=== PATIENT | male | born 1980 | race Caucasian/White ===

== ENCOUNTER 2018-04-29 05:19 | Inpatient (IN) ==
--- NOTE | 2018-04-29 05:43 | ED ---
HPI General Chief Complaint: Psychiatric Symptoms Stated Complaint: Vol Psy Time Seen by Provider: 04/29/18 05:33 Source: patient and family Mode of arrival: ambulatory Limitations: no limitations History of Present Illness HPI Narrative: 38 yo M arrives with father. pt called father this am at about 3 or 4 with a concern that "people were going to kill" his father. there is a hx of paranoid schizophrenia. noncompliance with antipsychotics is reported. location neuropsych. severity moderate. Pt denies HI/SI. Pt reports "people" can control his voice such that he says things that he does not mean to say. Related Data Home Medications Medication Instructions Recorded Confirmed No Known Home Medications 04/29/18 04/29/18 Allergies Allergy/AdvReac Type Severity Reaction Status Date / Time No Known Allergies Allergy Uncoded 12/04/11 02:12 Review of Systems ROS: all other systems reviewed are negative [facility] Medical History Medical History Schizophrenia (Acute) Surgical History Surgical History History of knee surgery (Acute) Social History Social History Substance History: No History of Abuse Second Hand Smoke Exposure: No Smoking Status: Current some day smoker Tobacco Type: Cigarettes How Often Do You Have a Drink Containing Alcohol: 2 to 3 times a week Recent Travel in [facility] within the Last 8 Weeks: No Recent Out of Country Travel within the Last 8 Weeks: No Exam Narrative Exam Narrative: GENERAL: 38 yo M, WNWD, NAD SKIN: Focused skin assessment warm/dry. HEAD: Atraumatic. Normocephalic. EYES: Pupils equal and round. No scleral icterus. No injection or drainage. ENT: No nasal bleeding or discharge. Mucous membranes pink and moist. NECK: Trachea midline. No JVD. CARDIOVASCULAR: Regular rate and rhythm. No murmur appreciated. RESPIRATORY: No accessory muscle use. Clear to auscultation. Breath sounds equal bilaterally. GASTROINTESTINAL: Abdomen soft, non-tender, nondistended. Hepatic and splenic margins not palpable. MUSCULOSKELETAL: No obvious deformities. No clubbing. No cyanosis. No edema. NEUROLOGICAL: Awake and alert. No obvious cranial nerve deficits. Motor grossly within normal limits. Normal speech. PSYCHIATRIC: Pt is afraid "people" will "kill" his parents. Course Initial Documented Vital Signs Temperature 98.4 F 04/29/18 05:21 Pulse Rate 74 04/29/18 05:21 Respiratory Rate 16 04/29/18 05:21 Blood Pressure 181/82 H 04/29/18 05:21 Pulse Oximetry 98 04/29/18 05:21 Last Documented Vital Signs Temperature 98.6 F 05/01/18 15:28 Pulse Rate 123 H 05/01/18 15:28 Respiratory Rate 18 05/01/18 15:28 Blood Pressure 119/93 H 05/01/18 15:28 Pulse Oximetry 99 05/01/18 15:28 Sign Out Sign Out Data: Patient Sign Out occurred on 04/29/18 at 07:10. Patient's care was discussed, and care was transferred from Tye Alva MD to Joshua Deras MD. Sign Out Comment: paranoid schizophrenia, not compliant with psychiatric medications, pt here voluntarily, psych medical clearance pending Last updated by Tye Alva MD at 04/29/18 07:02 Post-Handoff Eval: The patient was signed out by Dr. Alva at 7:10 AM. Laboratory evaluation was pending, unremarkable, drug screen is still pending. The patient is medically cleared to be evaluated by psychiatry. Medical Decision Making MDM Narrative Medical decision making narrative: Case d/w oncoming EP at 7:00AM. Medical Screen Exam Complete: Yes Emergency Medical Condition: Yes Lab Data Result diagrams: 04/29/18 06:45 05/01/18 08:58 Lab Results 04/29/18 04/29/18 04/29/18 Range/Units 06:45 06:45 11:30 WBC 9.9 (4.0-11.0) th/mm3 RBC 5.20 (4.50-5.90) mil/mm3 Hgb 16.1 (13.0-17.0) gm/dL Hct 47.7 (39.0-51.0) % MCV 91.7 (80.0-100.0) fL MCH 31.0 (27.0-34.0) pg MCHC 33.8 (32.0-36.0) % RDW 13.0 (11.6-17.2) % Plt Count 481 H (150-450) th/mm3 MPV 6.9 L (7.0-11.0) fL Neut % (Auto) 63.5 (16.0-70.0) % Lymph % (Auto) 26.4 (9.0-44.0) % Putnam % (Auto) 8.6 H (0.0-8.0) % Eos % (Auto) 1.1 (0.0-4.0) % Baso % (Auto) 0.4 (0.0-2.0) % Neut # (Auto) 6.3 (1.8-7.7) th/mm3 Lymph # (Auto) 2.6 (1.0-4.8) th/mm3 Putnam # (Auto) 0.9 (0.0-0.9) th/mm3 Eos # (Auto) 0.1 (0.0-0.4) th/mm3 Baso # (Auto) 0.0 (0.0-0.2) th/mm3 WBC Differential . Differential Comment Auto diff final Sodium 138 (136-145) meq/L Potassium 3.8 (3.5-5.1) meq/L Chloride 104 (98-107) meq/L Carbon Dioxide 26.0 (21.0-32.0) meq/L Anion Gap 8 (5-15) meq/L BUN 6 L (7-18) mg/dL Creatinine 0.79 (0.60-1.30) mg/dL Estimated GFR Greater than 89 (>89) mL/min Random Glucose 110 H (74-106) mg/dL Hemoglobin A1c (4.3-6.0) % Calcium 9.1 (8.5-10.1) mg/dL Magnesium 2.2 (1.5-2.5) mg/dL Total Bilirubin 0.5 (0.2-1.0) mg/dL AST 24 (15-37) U/L ALT 36 (12-78) U/L Alkaline Phosphatase 102 (45-117) U/L Total Protein 8.1 (6.4-8.2) g/dL Albumin 4.0 (3.4-5.0) g/dL Triglycerides (42-150) mg/dL Cholesterol (120-200) mg/dL LDL Cholesterol, Calc (0-99) mg/dL HDL Cholesterol (40.0-60.0) mg/dL Cholesterol/HDL Ratio Ratio TSH 1.770 (0.358-3.740) uIU/mL Urine Opiates Screen Neg (Neg) Ur Barbiturates Screen Neg (Neg) Ur Amphetamines Screen Neg (Neg) U Benzodiazepines Scrn Neg (Neg) Urine Cocaine Screen Neg (Neg) U Cannabinoids Screen Neg (Neg) Serum Alcohol Less than 3 (0-5) mg/dL 05/01/18 05/01/18 Range/Units 08:58 08:58 WBC (4.0-11.0) th/mm3 RBC (4.50-5.90) mil/mm3 Hgb (13.0-17.0) gm/dL Hct (39.0-51.0) % MCV (80.0-100.0) fL MCH (27.0-34.0) pg MCHC (32.0-36.0) % RDW (11.6-17.2) % Plt Count (150-450) th/mm3 MPV (7.0-11.0) fL Neut % (Auto) (16.0-70.0) % Lymph % (Auto) (9.0-44.0) % Putnam % (Auto) (0.0-8.0) % Eos % (Auto) (0.0-4.0) % Baso % (Auto) (0.0-2.0) % Neut # (Auto) (1.8-7.7) th/mm3 Lymph # (Auto) (1.0-4.8) th/mm3 Putnam # (Auto) (0.0-0.9) th/mm3 Eos # (Auto) (0.0-0.4) th/mm3 Baso # (Auto) (0.0-0.2) th/mm3 WBC Differential Differential Comment Sodium 140 (136-145) meq/L Potassium 3.0 L (3.5-5.1) meq/L Chloride 104 (98-107) meq/L Carbon Dioxide 27.1 (21.0-32.0) meq/L Anion Gap 9 (5-15) meq/L BUN 10 (7-18) mg/dL Creatinine 1.02 (0.60-1.30) mg/dL Estimated GFR 81 L (>89) mL/min Random Glucose 141 H (74-106) mg/dL Hemoglobin A1c 5.2 (4.3-6.0) % Calcium 8.5 (8.5-10.1) mg/dL Magnesium (1.5-2.5) mg/dL Total Bilirubin (0.2-1.0) mg/dL AST (15-37) U/L ALT (12-78) U/L Alkaline Phosphatase (45-117) U/L Total Protein (6.4-8.2) g/dL Albumin (3.4-5.0) g/dL Triglycerides 112 (42-150) mg/dL Cholesterol 144 (120-200) mg/dL LDL Cholesterol, Calc 82 (0-99) mg/dL HDL Cholesterol 39.4 L (40.0-60.0) mg/dL Cholesterol/HDL Ratio 3.65 Ratio TSH (0.358-3.740) uIU/mL Urine Opiates Screen (Neg) Ur Barbiturates Screen (Neg) Ur Amphetamines Screen (Neg) U Benzodiazepines Scrn (Neg) Urine Cocaine Screen (Neg) U Cannabinoids Screen (Neg) Serum Alcohol (0-5) mg/dL Discharge Plan Discharge Disposition Patient Disposition: Sign Out(ED Internal Use Only) Discharge Condition Condition: Stable Discharge Order Discharge Orders: ED Use Only Admit Order (Routine); Ordered 04/29/18 Ordered By: Mary Jane Subramanian Discharge Details Diagnosis: Schizophrenia Physicians Team ED Provider: Joshua Deras Primary Care Provider: Primary Care Maisha Padgett Attending Provider: Christiano Goode Other Providers: OLGA Mendoza High Service Status ED Status: Left Department Discharge Information Discharge Date/Time: 04/29/18 19:45
[2018-04-29 07:13] LABS: Baso % (Auto) 0.4 % (0.0-2.0); Eos # (Auto) 0.1 th/mm3 (0.0-0.4); Eos % (Auto) 1.1 % (0.0-4.0); Hematocrit 47.7 % (39.0-51.0); Hemoglobin 16.1 gm/dL (13.0-17.0); Lymph # (Auto) 2.6 th/mm3 (1.0-4.8); Lymph % (Auto) 26.4 % (9.0-44.0); Mean Corpuscular HGB Conc 33.8 % (32.0-36.0); Mean Corpuscular Volume 91.7 fL (80.0-100.0); Mean Platelet Volume 6.9 fL (7.0-11.0); Mono # (Auto) 0.9 th/mm3 (0.0-0.9); Mono % (Auto) 8.6 % (0.0-8.0); Neut # (Auto) 6.3 th/mm3 (1.8-7.7); Neut % (Auto) 63.5 % (16.0-70.0); Platelet Count 481 th/mm3 (150-450); White Blood Count 9.9 th/mm3 (4.0-11.0)
[2018-04-29 07:34] LABS: Alanine Aminotransferase 36 U/L (12-78); Anion Gap 8 meq/L (5-15); Aspartate Aminotransferase 24 U/L (15-37); Blood Urea Nitrogen 6 mg/dL (7-18); Calcium 9.1 mg/dL (8.5-10.1); Chloride 104 meq/L (98-107); Glomerular Filtration Rate Greater Than 89 mL/min (>89); Glucose,Random 110 mg/dL (74-106); Magnesium 2.2 mg/dL (1.5-2.5); Potassium 3.8 meq/L (3.5-5.1); Sodium 138 meq/L (136-145)
[2018-04-29 07:43] LABS: Alkaline Phosphatase 102 U/L (45-117); Total Protein 8.1 g/dL (6.4-8.2)
[2018-04-29 12:06] LABS: Amphetamine Screen,Urine Neg (Neg); Barbiturate Screen,Urine Neg (Neg); Cannabinoid Screen,Urine Neg (Neg); Cocaine Screen,Urine Neg (Neg)
[2018-04-29 12:07] LABS: Opiate Screen,Urine Neg (Neg)
--- NOTE | 2018-04-29 17:54 | ED ---
HPI - Psych - General Time Seen by Psych Provider: 17:25 Source: patient, family (Spoke with father via telephone.) Mode of arrival: ambulatory Limitations: no limitations - History of Present Illness MD complaint: other Onset (ago): day(s) Duration: constant History of same: Yes Relieving factors: none Exacerbating factors: none Context: not taking psychiatric medications Associated psychiatric symptoms: auditory hallucinations, delusions Associated symptoms: other (Multiple physical complaints are verbalized) Treatments prior to arrival: none If self harm: other (Denies thoughts of harming himself) - General Chief Complaint: Psychiatric Symptoms Stated Complaint: Vol Psy Time Seen by Provider: 04/29/18 05:33 - History of Present Illness HPI Narrative: History of Present Illness HPI Narrative: Patient is a 38-year-old , single male, lives by himself , on disability, with reported psychiatric history of paranoid schizophrenia, noncompliant with psychiatric medications for the past year, previous history of psychiatric hospitalizations, previous suicide attempt by cutting his wrist, who presents to the ED accompanied by his father under a voluntary status. The ED provider note state that "pt called father this am at about 3 or 4 with a concern that people were going to kill his father." In reviewing the electronic medical record I see that we have not had any previous contact with this patient. Labs are reviewed and toxicology is negative for any substances of abuse. Patient is seen. He is alert, oriented, disheveled and malodorous. He is anxious. He presents me with a list of medical issues that he believes require him being medically admitted including rash in his ear, head bumps, his lungs and chest feeling tight "due to acid reflux", and his throat closing up at times. He believes that this may be throat cancer and wishes to have a medical evaluation. Patient admits to having paranoid thoughts as well as auditory hallucinations that are torturing him and that at times require him to spend up to 12 hours in bed or up to 12 hours playing a video game in order to not hear the voices. He describes the voices as" torturing me, constantly telling me that they are going to kill me, also saying you are going to ". They also say negative things about him including you are getting involved and you are getting old. He admits to having paranoid thoughts regarding people hurting his parents. While on the unit he comes to the nurses station and wants reassurance because he believes that another patient said that we were going to be murdered. Despite his reported symptoms the patient lacks insight and is wanting to be discharged. He tells me he has an appointment in October 07 with his outpatient provider at [facility]. I have explained to him the benefits of an admission but he continues to decline so I have placed him under an involuntary status due to the thread of the patient responding to his hallucinations and harming himself. Telephone call to his father at [phone] with the patient's verbal consent. The father states that he has significant concerns for the patient's safety and that he is frightened that the patient will hurt himself if he is not admitted to the hospital and started on psychiatric medication. He is concerned because the patient has one previous episode in 2012 in which he seriously cut his wrist causing injury to his tendons and requiring admission at [facility] also in context of medication noncompliance and responding to the hallucinations. He states that he rented a room in a motel, went to [employer] and bought a icebox worker and a paint brush (so that they would not be suspicious of someone buying just the icebox worker) and proceeded to get in the bathtub and cut his wrist. He also tells me that he has been trying to get his son to take medications for a long time and that he becomes angry with him.. ( Mary Jane Subramanian) - Related Data Home Medications Medication Instructions Recorded Confirmed No Known Home Medications 04/29/18 04/29/18 Allergies Allergy/AdvReac Type Severity Reaction Status Date / Time No Known Allergies Allergy Uncoded 12/04/11 02:12 [facility] - History History Provided By: Patient, Family Member - Medical History Medical History: Medical History (Last Updated 04/29/18 @ 05:24 by Cristina Gaston RN) Schizophrenia - Surgical History Surgical History: Surgical History (Last Updated 04/29/18 @ 05:24 by Cristina Gaston RN) History of knee surgery - Social History I have reviewed the patient's Social History: Yes - Tobacco History Smoking Status: Never smoker - Alcohol History How Often Do You Have a Drink Containing Alcohol: Never - Substance Use History Substance History: No History of Abuse - Travel History Recent Travel in the [place] Within the Last 8 Weeks: No Recent Travel Out of the Country Within the Last 8 Weeks: No - Immunization History Tetanus Immunization: <5 Years Psychiatric History - Psychiatric History Psychiatric Treatment History: History of Psychiatric Treatment, History of Hospitalization in a Psychiatric Facility History of Inpatient Treatment: Yes Firearms in Home: No - Psychiatric History Patient reports he has had 2 previous psychiatric hospitalizations 1 in 2013 at [facility] and later transferred to [facility] after a suicide attempt by cutting his wrist. He also states he was hospitalized at [facility] in 2016. 1 previous serious suicide attempt by cutting his wrist. He last received outpatient psychiatric care at [facility] in [place]. (Mary Jane Subramanian) - Legal History None reported (Mary Jane Subramanian) - Family Psychiatric History None reported (Mary Jane Subramanian) Physical Exam - General Limitations: no limitations Mental Status Examination Appearance: Disheveled, Malodorous Consciousness: Alert Orientation: x4 Motor Activity: Normal gait Speech: Unremarkable Language: Adequate Fund of Knowledge: Adequate Attention and Concentration: Adequate Memory: Unremarkable Mood: Anxious Affect: Appropriate Thought Process & Associations: Other Thought Content: Hallucinations, Delusional Hallucination Type: Auditory Delusion Type: Paranoid Suicidal Ideation: No Suicidal Plan: No Suicidal Intention: No Homicidal Ideation: No Homicidal Plan: No Homicidal Intention: No Insight: Poor Judgment: Poor Initial Documented Vital Signs Temperature 98.4 F 04/29/18 05:21 Pulse Rate 74 04/29/18 05:21 Respiratory Rate 16 04/29/18 05:21 Blood Pressure 181/82 H 04/29/18 05:21 Pulse Oximetry 98 04/29/18 05:21 Last Documented Vital Signs Temperature 96.8 F L 04/29/18 18:23 Pulse Rate 92 H 04/29/18 18:23 Respiratory Rate 18 04/29/18 18:23 Blood Pressure 137/85 04/29/18 18:23 Pulse Oximetry 98 04/29/18 18:23 MDM - Psych - Diagnosis (1) Schizophrenia Code(s): F20.9 - Schizophrenia, unspecified Status: Acute - Lab Data Result diagrams: 04/29/18 06:45 04/29/18 06:45 - MDM Narrative Medical decision making narrative: At this time I have placed the patient under involuntary status as he refused admission to inpatient psychiatric treatment. The patient is non-medication compliant, lacks insight into his illness and is experiencing exacerbation of his symptoms including increase in auditory hallucinations and increasing paranoid behavior. Upon contacting his father he expressed great concern for the patient's safety if he were not admitted. The patient will be admitted to our inpatient psychiatric unit for further evaluation, for safety, and for stabilization. (Mary Jane Subramanian) - Lab Data Lab Results 04/29/18 04/29/18 04/29/18 Range/Units 06:45 06:45 11:30 WBC 9.9 (4.0-11.0) th/mm3 RBC 5.20 (4.50-5.90) mil/mm3 Hgb 16.1 (13.0-17.0) gm/dL Hct 47.7 (39.0-51.0) % MCV 91.7 (80.0-100.0) fL MCH 31.0 (27.0-34.0) pg MCHC 33.8 (32.0-36.0) % RDW 13.0 (11.6-17.2) % Plt Count 481 H (150-450) th/mm3 MPV 6.9 L (7.0-11.0) fL Neut % (Auto) 63.5 (16.0-70.0) % Lymph % (Auto) 26.4 (9.0-44.0) % Chambers % (Auto) 8.6 H (0.0-8.0) % Eos % (Auto) 1.1 (0.0-4.0) % Baso % (Auto) 0.4 (0.0-2.0) % Neut # (Auto) 6.3 (1.8-7.7) th/mm3 Lymph # (Auto) 2.6 (1.0-4.8) th/mm3 Chambers # (Auto) 0.9 (0.0-0.9) th/mm3 Eos # (Auto) 0.1 (0.0-0.4) th/mm3 Baso # (Auto) 0.0 (0.0-0.2) th/mm3 WBC Differential . Differential Comment Auto diff final Sodium 138 (136-145) meq/L Potassium 3.8 (3.5-5.1) meq/L Chloride 104 (98-107) meq/L Carbon Dioxide 26.0 (21.0-32.0) meq/L Anion Gap 8 (5-15) meq/L BUN 6 L (7-18) mg/dL Creatinine 0.79 (0.60-1.30) mg/dL Estimated GFR Greater than 89 (>89) mL/min Random Glucose 110 H (74-106) mg/dL Calcium 9.1 (8.5-10.1) mg/dL Magnesium 2.2 (1.5-2.5) mg/dL Total Bilirubin 0.5 (0.2-1.0) mg/dL AST 24 (15-37) U/L ALT 36 (12-78) U/L Alkaline Phosphatase 102 (45-117) U/L Total Protein 8.1 (6.4-8.2) g/dL Albumin 4.0 (3.4-5.0) g/dL TSH 1.770 (0.358-3.740) uIU/mL Urine Opiates Screen Neg (Neg) Ur Barbiturates Screen Neg (Neg) Ur Amphetamines Screen Neg (Neg) U Benzodiazepines Scrn Neg (Neg) Urine Cocaine Screen Neg (Neg) U Cannabinoids Screen Neg (Neg) Serum Alcohol Less than 3 (0-5) mg/dL
[2018-04-29] MEDS ORDERED: Aluminum/Magnesium/Simethacone Susp 30 ML UDC PO PRN (18:46)
--- NOTE | 2018-04-30 12:59 | P.HPPSY ---
Provisional Diagnosis Admission Date: April 29, 2018 18:51 Competence Certification of Person's Competence To Provide Express and Informed Consent I have personally examined Anderson Aaron, a person being served at [facility] on, April 30, 2018 1255. Express and informed consent means consent voluntarily given in writing, by a competent person, after sufficient explanation and disclosure of the subject matter involved to enable the person to make a knowing and willful decision without any element of force, fraud, deceit, duress, or other form of constraint or coercion. This person is 18 years of age or older, is not now known to be incompetent to consent to treatment with a guardian advocate, and does not have a health care surrogate or proxy currently making medical treatment decisions. I have found this person to be one of the following: [] Competent to provide express and informed consent, as defined above, for voluntary admission to this facility and is competent to provide express and informed consent for treatment. He/she has the consistent capacity to make well reasoned, willful, and knowing decisions concerning his or her medical or mental health treatment. The person fully and consistently understands the purpose of the admission for examination/placement and is fully capable of personally exercising all rights assured under [place] [] Incompetent to provide express and informed consent to voluntary admission, and this is incompetent to provide express and informed consent to treatment. The person must be transferred to involuntary status and a petition for a guardian advocate filed with the Circuit Court. [X] Refusing to provide express and informed consent to voluntary admission but is competent to provide express and informed consent for treatment. The person must be discharged or transferred to involuntary status. Form shall be completed within 24 hours of a person's arrival at the receiving facility and filed in the clinical record of each person: 1. Admitted on a voluntary basis 2. Permitted to provide express and informed consent to his/her own treatment 3. Allowed to transfer from involuntary to voluntary status 4. Prior to permitting a person to consent to his or her own treatment after having been previously found incompetent to consent to treatment. History of Present Illness Capacity: Has capacity Chief Complaint: AH History of Present Illness: Patient is a 38-year-old male with an extensive history of paranoid schizophrenia. Patient is presenting here with bothersome and persistent auditory hallucinations telling him "every single thing you can imagine." They include commands to hurt himself. Patient denies any intent of doing so but says he is very bothered by these voices. Patient is pleasant but tearful throughout the interview. He is scared to be here and insists on constant supervision with somebody to do therapy with him. Patient is has been very depressed and anxious. Cannot leave the house because he thinks that others are thinking about him and he may have a panic attack. Stressors include inability to have a "normal life and have a girlfriend." He does denies suicidal or homicidal ideations intent or plan. Past psych: More than 10 inpatient admissions. His last admission was 3 years ago. Patient says he last took medications 2 years ago and has been on "everything." Bad reaction to Haldol. He is only suicide attempt was 5 years ago where he slit his wrists. Past medical: See chart Past Famhx: "family had psych issues." Past Social: not , denies substance use. - Inpatient Certification I certify that the inpatient services were ordered in accordance with Medicare regulations governing the order. This includes certification that hospital inpatient services are reasonable and necessary and in the case of services not specified as inpatient-only under 42 CFR 419.22(n), that they are appropriately provided as inpatient services in accordance to with the 2-midnight benchmark under 43 CFR 412.3(e) I certify that inpatient psychiatric hospital services are medically necessary. Evaluation and treatment and/or diagnostic testing are expected to improve the patient's condition. The patient needs on a daily basis, active treatment furnished directly by or requiring the supervision of inpatient psychiatric facility personnel. Estimated Total Length of Stay (Days): 7 Plans for Post Hospital Care: Home Review of Systems All other systems reviewed negative except as stated in HPI PMFSH - History History Provided By: Patient, Medical Record - Medical History Medical History: Medical History (Last Updated 04/29/18 @ 05:24 by Cristina Gaston RN) Schizophrenia - Surgical History Surgical History: Surgical History (Last Updated 04/29/18 @ 05:24 by Cristina Gaston RN) History of knee surgery - Tobacco History Second Hand Smoke Exposure: No Tobacco Use In Past 30 Days: Yes Smoking Status: Current some day smoker Tobacco Type: Cigarettes - Alcohol History How Often Do You Have a Drink Containing Alcohol: 2 to 3 times a week - Substance Use History Substance History: No History of Abuse - Travel History Recent Travel in the [place] Within the Last 8 Weeks: No Recent Travel Out of the Country Within the Last 8 Weeks: No - Immunization History Tetanus Immunization: <5 Years Hx Influenza Vaccine This Season: No Medications and Allergies Active Medications: Active Medications Al Hydrox/Mg Hydrox/Simethicone (Mag-Al Plus Susp Liq) 30 ml PO Q6H PRN PRN Reason: DYSPEPSIA Al Hydroxide/Mg Hydroxide (Milk Of Magnesia Liq) 30 ml PO Q12H PRN PRN Reason: Mild Constipation Escitalopram Oxalate (Lexapro) 10 mg PO DAILY LAKSHMI Lorazepam (Ativan) 1 mg PO Q6H PRN PRN Reason: ANXIETY AND/OR AGITATION Risperidone (Risperdal) 1 mg PO DAILY LAKSHMI Risperidone (Risperdal) 2 mg PO HS LAKSHMI Sennosides (Senokot) 17.2 mg PO Q12H PRN PRN Reason: Moderate Constipation Allergies Allergy/AdvReac Type Severity Reaction Status Date / Time No Known Allergies Allergy Uncoded 12/04/11 02:12 Home Medications Medication Instructions Recorded Confirmed Type No Known Home Medications 04/29/18 04/29/18 History Results - Labs CBC & Chem 7: 04/29/18 06:45 04/29/18 06:45 Exam Vital signs: Vital Signs 04/29/18 18:23 04/29/18 22:05 04/30/18 05:17 Temperature 96.8 F L 98 F 98.3 F Pulse Rate 92 H 110 H 80 Respiratory Rate 18 18 17 Blood Pressure 137/85 142/93 H 126/73 Pulse Oximetry 98 98 97 Intake & Output 04/29/18 04/30/18 04/30/18 18:59 06:59 18:59 Weight 89 kg Other: Weight On Admission 89 kg Mental Status Examination Appearance: Disheveled, Malodorous Consciousness: Alert Orientation: x4 Motor Activity: Normal gait Speech: Unremarkable Language: Adequate Fund of Knowledge: Adequate Attention and Concentration: Adequate Memory: Unremarkable Mood: Sad, Anxious Affect: Other (tearful) Thought Process & Associations: Disorganized Thought Content: Hallucinations, Delusional Hallucination Type: Auditory Delusion Type: Paranoid Suicidal Ideation: No Suicidal Plan: No Suicidal Intention: No Homicidal Ideation: No Homicidal Plan: No Homicidal Intention: No Insight: Poor Judgment: Poor Assessment and Plan - Assessment (1) Schizophrenia Code(s): F20.9 - Schizophrenia, unspecified Status: Acute - Plan Plan: Start Lexapro for anxiety, as needed Ativan for anxiety. Start Risperdal 1 mg in the a.m. and 2 mg at night. One-to-one ordered for the day, consider DC tomorrow. Justification for Continued Inpatient Stay: Patient would decompensate in a less restrictive setting (1) Schizophrenia Qualifiers: Schizophrenia type: unspecified Qualified Code(s): F20.9 - Schizophrenia, unspecified
[2018-04-30] MEDS: LORazepam 1 MG Tablet PO PRN (14:33)
[2018-04-30] MEDS: Escitalopram 10 MG Tablet PO SCH (14:33)
[2018-05-01] MEDS: Escitalopram 10 MG Tablet PO SCH (08:24)
[2018-05-01] MEDS: LORazepam 1 MG Tablet PO PRN ×2 (08:53→16:06)
[2018-05-01 10:08] LABS: Calcium 8.5 mg/dL (8.5-10.1); Carbon Dioxide 27.1 meq/L (21.0-32.0)
[2018-05-01 10:12] LABS: Chol/HDL Ratio 3.65 Ratio; HDL Cholesterol 39.4 mg/dL (40.0-60.0)
--- NOTE | 2018-05-01 13:05 | P.PNPSY ---
Subjective Chief Complaint: Remarks: Patient seen for follow-up, chart reviewed, patient discussed with nursing staff ; we reviewed the patient's mood, thoughts, and behaviors from overnight and this morning. Nursing reports the patient slept 7 hours overnight. He is described as bizarre and attention seeking with many somatic complaints. Patient has been med compliant and no signs or symptoms of suicidal or homicidal thoughts or intentions. Patient was seen at bedside after breakfast. He self or claims a diagnosis of posttraumatic stress disorder as evidenced by recurrent nightmares and flashbacks. Attempts to clarify the symptoms are difficult as the patient is disorganized. He does report that his nightmares and flashbacks are about someone trying to harm him. Patient also suggested that his auditory hallucinations are manifestations of nightmares and flashbacks that occur while he is awake. Patient reports that since starting on his inpatient treatments that these experiences have decreased by "90%". When asked to rate his anxiety he reports "it is 0 and it is also 10 at the same time." Patient admits to continued auditory hallucinations. Patient does complain of difficulty swallowing but denies that this is a new symptom and reports that it started 6 months ago. Patient reports that he is able to complete most of his meals and he denies any current coughing. Review of Systems Ears, Nose, Mouth, and Throat: Reports difficulty swallowing Psychiatric: Reports anxiety, Reports hearing things others do not hear, Reports sensing things others do not sense Mental Status Examination Appearance: Disheveled Consciousness: Alert Orientation: x4 Motor Activity: Normal gait Speech: Unremarkable Language: Adequate Fund of Knowledge: Adequate Attention and Concentration: Adequate Memory: Unremarkable Mood: Sad, Anxious Affect: Blunt Thought Process & Associations: Loose associations, Disorganized Thought Content: Hallucinations, Delusional Hallucination Type: Auditory Delusion Type: Paranoid Suicidal Ideation: No Suicidal Plan: No Suicidal Intention: No Homicidal Ideation: No Homicidal Plan: No Homicidal Intention: No Insight: Poor Judgment: Poor Assessment and Plan - Assessment (1) Schizophrenia Code(s): F20.9 - Schizophrenia, unspecified Status: Acute - Plan Plan: 04/30. Initial assessment and plan: Start Lexapro for anxiety, as needed Ativan for anxiety. Start Risperdal 1 mg in the a.m. and 2 mg at night. One-to -one ordered for the day, consider DC tomorrow. 05/01/2018: Unsatisfactory response to treatment; the patient is reporting a significant decrease in his symptoms but he remains disorganized delusional and experiencing auditory hallucinations. There is no signs or symptoms to suggest that the patient is imminent risk of harm to self or others therefore one-on- one observation can be discontinued. Continue inpatient psychiatric treatment and observation. Continue current medications unchanged for now; the doses started are therapeutic but will require a few days to reach steady state. Justification for Continued Inpatient Stay: Patient remains an elevated risk for self-harm by self neglect and will require further inpatient stabilization and preparation of a safe discharge plan. Moving patient to a less restrictive environment at this time may result in decompensation. (1) Schizophrenia Qualifiers: Schizophrenia type: unspecified Qualified Code(s): F20.9 - Schizophrenia, unspecified
[2018-05-01 17:30] LABS: Hemoglobin A1c 5.2 % (4.3-6.0)
--- NOTE | 2018-05-01 21:18 | ECG ---
Date Performed: 04/30/2018 Time Performed: 16:33:34 PTAGE: 38 years EKG: Sinus rhythm MINIMAL VOLTAGE CRITERIA FOR LVH, CONSIDER NORMAL VARIANT BORDERLINE ECG PREVIOUS TRACING : 12/04/2011 02.52 Since the previous tracing, no significant change noted DOCTOR: Skyler Leon Interpretating Date/Time 05/01/2018 21:17:09
[2018-05-02] MEDS: LORazepam 1 MG Tablet PO PRN ×2 (02:50→17:24)
[2018-05-02] MEDS: Escitalopram 10 MG Tablet PO SCH (08:24)
--- NOTE | 2018-05-02 08:56 | P.TTN ---
- Patient Problems Problems: 1. Discharge planning 2. Medication compliance 3. Knowledge deficit 4. Lack of coping skills - Progress Toward Goals Provider Present: Other Provider Input: 05/02/[address] Campos pt still getting adjusted with meds, will eval today to determine if he is good for d/c or not. Nurse Input: 05/02/18 Per RN pt is compliant with medication. Pt has been isolating in his bedroom. No beh issues. Psychiatric Counselors Present: Other Psychiatric Therapist Input: 05/02/18 Per Chen: Therapist f/u with pt and pt's family. Pt will be returning to his home upon d/c. Family is very supportive. Group Spec/RT/OT/GRIFFIN Present: Harry Morillo OT Group Spec/RT/OT/GRIFFIN Input: 05/02/18 Pt has not been coming to groups despite encouragement from the staff. - Documentation Teaching Recipient: Patient
--- NOTE | 2018-05-02 15:31 | P.PNPSY ---
Subjective Chief Complaint: Remarks: Patient seen for follow-up, chart reviewed, patient discussed with nursing staff ; we reviewed the patient's mood, thoughts, and behaviors from overnight and this morning. Nursing reports the patient was anxious and paranoid overnight complaining that he feared for his safety because of his roommates and because of the disruptions on the unit. Patient reportedly only got 5 hours of sleep. The patient was observed throughout the day to be sleeping in between meals but eventually awoken lunch. The patient continues to endorse auditory hallucinations and gave examples of arguments going on in his head that lasted for hours prior to lunch which they are debating whether or not he should go to lunch in the dayroom or stay in his room where it would be safer. The patient expressed increased insight as to the illogical nature of these arguments, "I know I do not have anything to be afraid of". Patient continues to complain of difficulty swallowing his food and he does admit that he hears voices threatening to choke him the triggers of this experience but at the same time he expressed frustration that he has not had a further medical workup of this experience. We discussed his treatment goals for this inpatient hospitalization and he acknowledges that he came here voluntarily and he would like to be transitioned to voluntary or early status and agreed to continue to work with the treatment team to stabilize his auditory hallucinations and paranoia. He is now reporting that his nightmares/night terrors are 99% improved with treatment. Review of Systems All other systems reviewed negative except as stated in HPI Mental Status Examination Appearance: Disheveled Consciousness: Alert Orientation: x4 Motor Activity: Normal gait Speech: Unremarkable Language: Adequate Fund of Knowledge: Adequate Attention and Concentration: Adequate Memory: Unremarkable Mood: Sad, Anxious Affect: Blunt Thought Process & Associations: Loose associations, Disorganized Thought Content: Hallucinations, Delusional (Insight is improving) Hallucination Type: Auditory Delusion Type: Paranoid Suicidal Ideation: No Suicidal Plan: No Suicidal Intention: No Homicidal Ideation: No Homicidal Plan: No Homicidal Intention: No Insight: Fair Judgment: Impulsive Assessment and Plan - Assessment (1) Schizophrenia Code(s): F20.9 - Schizophrenia, unspecified Status: Acute - Plan Plan: 04/30. Initial assessment and plan: Start Lexapro for anxiety, as needed Ativan for anxiety. Start Risperdal 1 mg in the a.m. and 2 mg at night. One-to -one ordered for the day, consider DC tomorrow. 05/01/2018: Unsatisfactory response to treatment; the patient is reporting a significant decrease in his symptoms but he remains disorganized delusional and experiencing auditory hallucinations. There is no signs or symptoms to suggest that the patient is imminent risk of harm to self or others therefore one-on- one observation can be discontinued. Continue inpatient psychiatric treatment and observation. Continue current medications unchanged for now; the doses started are therapeutic but will require a few days to reach steady state. 05/02/2018: Unsatisfactory response to treatment but the patient is reporting decrease in the intensity of his delusions, auditory hallucinations and nightmares. He expressed improved insight into the illogical nature of his paranoia and he expressed motivation to continue his inpatient treatment on a voluntary status. Continue inpatient psychiatric treatment and observation, convert to voluntary status. Continue current medications unchanged for now; the doses started are therapeutic but will require a few days to reach steady state. Consult hospitalist for workup of patient's complaints of difficulty swallowing and recurrent regurgitation of his meals. The patient does admit to hearing voices telling him that he is going to choke on his food but it is unclear whether or not this is triggered by the actual choking experience or whether or not it becomes a self-fulfilling prophecy but the patient is requesting a medical workup and would benefit from ruling out organic causes. Justification for Continued Inpatient Stay: Patient remains an elevated risk for self-harm by self neglect as evidenced by his fear of leaving his home or leaving his room to get meals and will require further inpatient stabilization and preparation of a safe discharge plan. Moving patient to a less restrictive environment at this time may result in decompensation. (1) Schizophrenia Qualifiers: Schizophrenia type: unspecified Qualified Code(s): F20.9 - Schizophrenia, unspecified
--- NOTE | 2018-05-02 16:49 | P.CON ---
History of Present Illness Service: [facility] Consult date: 05/02/18 Requesting Physician: Christiano Goode Reason for Consult: c/o "throat closing during meals" Primary Care Provider: No Primary Care Physician Chief Complaint: unable to swallow foods at times History of Present Illness: Patient is a 38-year-old male with an extensive history of paranoid schizophrenia. He presented to ED on 04/29/2018 with auditory hallucinations. Pt. is currently under voluntary. Pt. has complained of "throat closing when he eats". States this has been happening for 7 months but had not had a formal evaluation by PCP or GI. Denies any weight loss. Today, he ate and then vomited. Feels that food gets stuck at level of throat, at times food bolus moves down and he has no problems. He did admit to psychiatrist that he was hearing voices telling him that he is going to choke on his food. Per nursing, he had refused to eat in dining room and was allowed to eat by himself. Denies any prior history of esophageal disorders, endorses occasional reflux but doesn' t take anything regularly. It happens with liquids and solids. He is somewhat disorganized, asking me to check on his right hear because he is concerned of having "a flaky discharge". He sometimes feels bumps on his scalp but believes these are voices telling him. Laboratory work up is unremarkable. He is concerned about having work up done here as he is anxious to go home since he was just changed to voluntary status. [facility] is consulted for assistance with possible dysphagia. Review of Systems All other systems reviewed negative except as stated in [facility] - History History Provided By: Patient, Medical Record - Medical History Medical History: Medical History (Last Reviewed 05/02/18 @ 17:25 by SPARKLE Monk) Schizophrenia - Surgical History Surgical History: Surgical History (Last Reviewed 05/02/18 @ 17:25 by SPARKLE Monk) History of knee surgery - Family History Family History: Family History (Last Updated 05/02/18 @ 17:25 by SPARKLE Monk) Other Patient denies significant medical history - Social History I have reviewed the patient's Social History: Yes - Tobacco History Second Hand Smoke Exposure: No Tobacco Use In Past 30 Days: Yes Smoking Status: Current some day smoker Tobacco Type: Cigarettes - Alcohol History How Often Do You Have a Drink Containing Alcohol: 2 to 3 times a week - Substance Use History Substance History: No History of Abuse - Travel History Recent Travel in the [place] Within the Last 8 Weeks: No Recent Travel Out of the Country Within the Last 8 Weeks: No - Immunization History Tetanus Immunization: <5 Years Hx Influenza Vaccine This Season: No Medications and Allergies Active Medications: Active Medications Al Hydrox/Mg Hydrox/Simethicone (Mag-Al Plus Susp Liq) 30 ml PO Q6H PRN PRN Reason: DYSPEPSIA Last Admin: 05/01/18 11:24 Dose: 30 ml Al Hydroxide/Mg Hydroxide (Milk Of Magnesia Liq) 30 ml PO Q12H PRN PRN Reason: Mild Constipation Escitalopram Oxalate (Lexapro) 10 mg PO DAILY [facility] Last Admin: 05/02/18 08:24 Dose: 10 mg Lorazepam (Ativan) 1 mg PO Q6H PRN PRN Reason: ANXIETY AND/OR AGITATION Last Admin: 05/02/18 02:50 Dose: 1 mg Risperidone (Risperdal) 1 mg PO DAILY [facility] Last Admin: 05/02/18 08:24 Dose: 1 mg Risperidone (Risperdal) 2 mg PO HS [facility] Last Admin: 05/01/18 20:38 Dose: 2 mg Sennosides (Senokot) 17.2 mg PO Q12H PRN PRN Reason: Moderate Constipation Allergies Allergy/AdvReac Type Severity Reaction Status Date / Time No Known Allergies Allergy Uncoded 12/04/11 02:12 Home Medications Medication Instructions Recorded Confirmed Type No Known Home Medications 04/29/18 04/29/18 History Physical Exam Vital signs: Vital Signs 05/02/18 05:36 Temperature 97.2 F L Pulse Rate 116 H Respiratory Rate 18 Blood Pressure 140/91 H Pulse Oximetry 95 Narrative: GENERAL: Well-nourished, well-developed patient in no apparent distress. SKIN: Warm and dry. HEAD: Atraumatic. Normocephalic. EYES: Pupils equal and round. No scleral icterus. No injection or drainage. ENT: No nasal bleeding or discharge. Mucous membranes pink and moist. Right ear with some mild erythema ext. ear canal with cerumen. NECK: Trachea midline. No JVD. CARDIOVASCULAR: Regular rate and rhythm. RESPIRATORY: No accessory muscle use. Clear to auscultation. Breath sounds equal bilaterally. GASTROINTESTINAL: Abdomen soft, non-tender, nondistended. Hepatic and splenic margins not palpable. MUSCULOSKELETAL: Extremities without clubbing, cyanosis, or edema. No obvious deformities. NEUROLOGICAL: Awake and alert. No obvious cranial nerve deficits. Motor grossly within normal limits. Five out of 5 muscle strength in the arms and legs. Normal speech. PSYCHIATRIC: disorganized, anxious. Results - Labs CBC & Chem 7: 04/29/18 06:45 05/01/18 08:58 Labs: Laboratory Results - last 24 hr 05/01/18 08:58 Hemoglobin A1c 5.2 Assessment and Plan - Plan 38 year old male with schizophrenia admitted to psych. Complaining of "choking on food". Schizophrenia -continue with psychiatric management Report of "choking on food", unclear if this due to esophageal stricture or this is triggered by psychiatric disorder Hx of reflux, no meds at home, no prior evaluation. -will start with swallow evaluation for now. May need modified barium swallow. -add Pepcid 20 mg po bid Right ear with mild cerumen impaction -Debrox drops BID Plan of care discussed with RN and pt. Thank you for this consultation, we will follow. Code Status: Full code Discussed Condition With: RN, pt. Discharge Planning: Per psych team
[2018-05-02] MEDS: Famotidine 20 MG Tablet PO SCH (20:16)
[2018-05-02] MEDS: Carbamide Peroxide 6.5% Otic Drops 15 ML Bottle EACH EAR SCH (21:03)
[2018-05-03 06:04] VITALS: TEMP 97.8
[2018-05-03] MEDS: Escitalopram 10 MG Tablet PO SCH (08:31)
[2018-05-03] MEDS: Famotidine 20 MG Tablet PO SCH ×2 (08:31→20:51)
[2018-05-03] MEDS: Carbamide Peroxide 6.5% Otic Drops 15 ML Bottle EACH EAR SCH ×2 (08:32→20:50)
[2018-05-03] MEDS: LORazepam 1 MG Tablet PO PRN (08:55)
--- NOTE | 2018-05-03 12:06 | P.PNPSY ---
Subjective Chief Complaint: Remarks: Patient seen for follow-up, chart reviewed, patient discussed with nursing staff ; we reviewed the patient's mood, thoughts, and behaviors from overnight and this morning. Nurse reports the patient slept 8 hours overnight. He has been pleasant in his interactions with staff and is denying auditory hallucinations to nursing. He ate 100% of his breakfast. Patient was seen at bedside and he reports feeling bored and ready to go home. He does admit to continued auditory hallucinations but he said it is much easier to ignore the voices. He denies any paranoia and he feels safe to go home. He was satisfied with the hospitalist consultation and advice about his swallowing difficulties. He denies any suicidal or homicidal ideations. He reports great satisfaction from the Ativan but understands that it could be habit forming that he would like to try an alternative. Patient also complains of some sedation from the morning dose of Risperdal and would like dosing changes. Mental Status Examination Appearance: Disheveled Consciousness: Alert Orientation: x4 Motor Activity: Normal gait Speech: Unremarkable Language: Adequate Fund of Knowledge: Adequate Attention and Concentration: Adequate Memory: Unremarkable Mood: Anxious Affect: Blunt Thought Process & Associations: Intact, Logical, Goal directed Thought Content: Hallucinations Hallucination Type: Auditory Delusion Type: None Suicidal Ideation: No Suicidal Plan: No Suicidal Intention: No Homicidal Ideation: No Homicidal Plan: No Homicidal Intention: No Insight: Fair Judgment: Impulsive Assessment and Plan - Assessment (1) Schizophrenia Code(s): F20.9 - Schizophrenia, unspecified Status: Acute - Plan Plan: 04/30. Initial assessment and plan: Start Lexapro for anxiety, as needed Ativan for anxiety. Start Risperdal 1 mg in the a.m. and 2 mg at night. One-to -one ordered for the day, consider DC tomorrow. 05/01/2018: Unsatisfactory response to treatment; the patient is reporting a significant decrease in his symptoms but he remains disorganized delusional and experiencing auditory hallucinations. There is no signs or symptoms to suggest that the patient is imminent risk of harm to self or others therefore one-on- one observation can be discontinued. Continue inpatient psychiatric treatment and observation. Continue current medications unchanged for now; the doses started are therapeutic but will require a few days to reach steady state. 05/02/2018: Unsatisfactory response to treatment but the patient is reporting decrease in the intensity of his delusions, auditory hallucinations and nightmares. He expressed improved insight into the illogical nature of his paranoia and he expressed motivation to continue his inpatient treatment on a voluntary status. Continue inpatient psychiatric treatment and observation, convert to voluntary status. Continue current medications unchanged for now; the doses started are therapeutic but will require a few days to reach steady state. Consult hospitalist for workup of patient's complaints of difficulty swallowing and recurrent regurgitation of his meals. The patient does admit to hearing voices telling him that he is going to choke on his food but it is unclear whether or not this is triggered by the actual choking experience or whether or not it becomes a self-fulfilling prophecy but the patient is requesting a medical workup and would benefit from ruling out organic causes. 05/03/2018: Fair response to treatment; the patient is reporting a decreased intensity to his auditory hallucinations and a significant decrease in his paranoia. He is now reporting that he feels safe to go home and would prefer to continue his recovery at home because it is easier for him to remains isolative. We discussed risks benefits side effects and alternatives and the patient agrees to a trial of hydroxyzine as needed for mild to moderate anxiety in order to avoid dependency on Ativan. Patient agrees with plan to observe 1 more day for stability and then plan for discharge tomorrow. Continue inpatient psychiatric treatment and observation, anticipate discharge tomorrow if he remains stable. Change Risperdal dosing to 3 mg at bedtime with no doses given in the morning. Change indication for Ativan to 1 mg every 6-8 hours as needed for moderate to severe anxiety. Start Atarax 50 mg every 6 hours as needed for mild to moderate anxiety. Justification for Continued Inpatient Stay: Patient remains an elevated risk for self-harm by self neglect and will require further inpatient stabilization and preparation of a safe discharge plan. Moving patient to a less restrictive environment at this time may result in decompensation. (1) Schizophrenia Qualifiers: Schizophrenia type: unspecified Qualified Code(s): F20.9 - Schizophrenia, unspecified
--- NOTE | 2018-05-03 16:46 | P.PN ---
Subjective Interval history: Follow up for difficulty swallowing: Pt. seen and examined, states he ate well today, no n/v. Passed swallow eval. Had diarrhea x 2 today, one episode that he lost control. States that he may have IBS but feels this was related to his anxiety. Requested a private room. Denies abdominal pain. Physical Exam Vital signs: Vital Signs 05/02/18 18:24 05/03/18 06:00 Temperature 97.6 F 97.8 F Pulse Rate 100 H 93 H Respiratory Rate 16 16 Blood Pressure 115/64 96/52 L Pulse Oximetry 99 98 Narrative: GENERAL: Well-nourished, well-developed patient in no apparent distress. SKIN: Warm and dry. HEAD: Atraumatic. Normocephalic. EYES: Pupils equal and round. No scleral icterus. No injection or drainage. ENT: No nasal bleeding or discharge. Mucous membranes pink and moist. Right ear with some mild erythema ext. ear canal with cerumen. NECK: Trachea midline. No JVD. CARDIOVASCULAR: Regular rate and rhythm. RESPIRATORY: No accessory muscle use. Clear to auscultation. Breath sounds equal bilaterally. GASTROINTESTINAL: Abdomen soft, non-tender, nondistended. Hepatic and splenic margins not palpable. MUSCULOSKELETAL: Extremities without clubbing, cyanosis, or edema. No obvious deformities. NEUROLOGICAL: Awake and alert. No obvious cranial nerve deficits. Motor grossly within normal limits. Five out of 5 muscle strength in the arms and legs. Normal speech. PSYCHIATRIC: disorganized, anxious. Results - Labs CBC & Chem 7: 04/29/18 06:45 05/01/18 08:58 Assessment and Plan - Plan 38 year old male with schizophrenia admitted to psych. Complaining of "choking on food". Schizophrenia -continue with psychiatric management Report of "choking on food", unclear if this due to esophageal stricture or this is triggered by psychiatric disorder Hx of reflux, no meds at home, no prior evaluation. -swallow eval done, report reviewed. No significant findings. Recommends regular diet. No further work up -continue Pepcid 20 mg po bid -eating well today, no episodes of "choking" on food. Reported diarrhea x 2, poss anxiety related. Reports Hx of IBS -continue to monitor Right ear with mild cerumen impaction -Debrox drops BID Will sign off for now, reconsult if needed. Code Status: Full code Discussed Condition With: RN, pt Discharge Planning: Per psych team
[2018-05-03 17:58] VITALS: BP 110/57; PULSE 79; RESP 17; O2SAT 96
[2018-05-04] MEDS: Carbamide Peroxide 6.5% Otic Drops 15 ML Bottle EACH EAR SCH (08:49)
[2018-05-04] MEDS: Escitalopram 10 MG Tablet PO SCH (08:49)
[2018-05-04] MEDS: Famotidine 20 MG Tablet PO SCH (08:49)
--- NOTE | 2018-05-04 12:52 | P.DSPSY ---
Psychiatry Discharge Summary Inpatient Psychiatric care?: Yes Advance Directives: No Mental Health Advance Directive: No Health Care Proxy: No - Admission Admission Date: April 29, 2018 18:51 - Admission Diagnosis (1) Schizophrenia Code(s): F20.9 - Schizophrenia, unspecified Brief History: Patient is a 38-year-old male with an extensive history of paranoid schizophrenia. Patient is presenting here with bothersome and persistent auditory hallucinations telling him "every single thing you can imagine." They include commands to hurt himself. Patient denies any intent of doing so but says he is very bothered by these voices. Patient is pleasant but tearful throughout the interview. He is scared to be here and insists on constant supervision with somebody to do therapy with him. Patient is has been very depressed and anxious. Cannot leave the house because he thinks that others are thinking about him and he may have a panic attack. Stressors include inability to have a "normal life and have a girlfriend." He does denies suicidal or homicidal ideations intent or plan. Past psych: More than 10 inpatient admissions. His last admission was 3 years ago. Patient says he last took medications 2 years ago and has been on "everything." Bad reaction to Haldol. He is only suicide attempt was 5 years ago where he slit his wrists. Past medical: See chart Past Famhx: "family had psych issues." Past Social: not , denies substance use. Tobacco Use In Past 30 Days: Yes How Often Do You Have a Drink Containing Alcohol: 2 to 3 times a week Hospital Course: 04/30. Initial assessment and plan: Start Lexapro for anxiety, as needed Ativan for anxiety. Start Risperdal 1 mg in the a.m. and 2 mg at night. One-to -one ordered for the day, consider DC tomorrow. 05/01/2018: Unsatisfactory response to treatment; the patient is reporting a significant decrease in his symptoms but he remains disorganized delusional and experiencing auditory hallucinations. There is no signs or symptoms to suggest that the patient is imminent risk of harm to self or others therefore one-on- one observation can be discontinued. Continue inpatient psychiatric treatment and observation. Continue current medications unchanged for now; the doses started are therapeutic but will require a few days to reach steady state. 05/02/2018: Unsatisfactory response to treatment but the patient is reporting decrease in the intensity of his delusions, auditory hallucinations and nightmares. He expressed improved insight into the illogical nature of his paranoia and he expressed motivation to continue his inpatient treatment on a voluntary status. Continue inpatient psychiatric treatment and observation, convert to voluntary status. Continue current medications unchanged for now; the doses started are therapeutic but will require a few days to reach steady state. Consult hospitalist for workup of patient's complaints of difficulty swallowing and recurrent regurgitation of his meals. The patient does admit to hearing voices telling him that he is going to choke on his food but it is unclear whether or not this is triggered by the actual choking experience or whether or not it becomes a self-fulfilling prophecy but the patient is requesting a medical workup and would benefit from ruling out organic causes. 05/03/2018: Fair response to treatment; the patient is reporting a decreased intensity to his auditory hallucinations and a significant decrease in his paranoia. He is now reporting that he feels safe to go home and would prefer to continue his recovery at home because it is easier for him to remains isolative. We discussed risks benefits side effects and alternatives and the patient agrees to a trial of hydroxyzine as needed for mild to moderate anxiety in order to avoid dependency on Ativan. Patient agrees with plan to observe 1 more day for stability and then plan for discharge tomorrow. Continue inpatient psychiatric treatment and observation, anticipate discharge tomorrow if he remains stable. Change Risperdal dosing to 3 mg at bedtime with no doses given in the morning. Change indication for Ativan to 1 mg every 6-8 hours as needed for moderate to severe anxiety. Start Atarax 50 mg every 6 hours as needed for mild to moderate anxiety. 05/04/2018: Patient was seen and examined on the unit by psychiatry and also visited by counselor. Psychotropic medications remained well tolerated and he reports satisfactory control of anxiety with the addition of Atarax 50 mg as needed. There was a good response to inpatient treatment plan noted by nursing and provider observations, and the patient reported improvements in mood, anxiety, and there was no evidence of any suicidality or homicidality at time of discharge. He continues to struggle with auditory hallucinations but he reports a significant decrease in intensity and he demonstrated an ability to process the negativistic aspects of these thoughts with his nurse this morning and is reporting improved strength and ability to ignore them process the negativity. Psychiatric follow-up as arranged by counselor. Patient is also to follow up with primary care; workup of his swallowing difficulties was determined that most likely be anxiety related. I have counseled the patient to abstain from substances of abuse including cannabis and have counseled patient to return to the psychiatric emergency room for any concerning symptoms as part of a general safety plan. - Discharge Discharge Date: 05/04/18 - Discharge Diagnosis (1) Schizophrenia Code(s): F20.9 - Schizophrenia, unspecified Status: Acute Discharge Disposition: Home - Discharge Time > 30 minutes Mental Status Examination Appearance: Disheveled Consciousness: Alert Orientation: x4 Motor Activity: Normal gait Speech: Unremarkable Language: Adequate Fund of Knowledge: Adequate Attention and Concentration: Adequate Memory: Unremarkable Mood: Anxious Affect: Appropriate Thought Process & Associations: Intact, Logical, Goal directed Thought Content: Hallucinations Hallucination Type: Auditory Delusion Type: None Suicidal Ideation: No Suicidal Plan: No Suicidal Intention: No Homicidal Ideation: No Homicidal Plan: No Homicidal Intention: No Insight: Fair Judgment: Impulsive Discharge/Advance Care Plan - Results Vital Signs: Last Vital Signs Temp 97.8 F 05/03/18 17:56 Pulse 79 05/03/18 17:56 Resp 17 05/03/18 17:56 BP 110/57 L 05/03/18 17:56 Pulse Ox 96 05/03/18 17:56 Lab Results: Laboratory Results Hemoglobin A1c 5.2 % (4.3-6.0) 05/01/18 08:58 Triglycerides 112 mg/dL (42-150) 05/01/18 08:58 Cholesterol 144 mg/dL (120-200) 05/01/18 08:58 LDL Cholesterol, Calc 82 mg/dL (0-99) 05/01/18 08:58 HDL Cholesterol 39.4 mg/dL (40.0-60.0) L 05/01/18 08:58 TSH 1.770 uIU/mL (0.358-3.740) 04/29/18 06:45 Summary of Procedures: Swallowing test was performed by audiology and the patient passed without complications Pending Results: None - Medications Number of antipsychotic medications at discharge: 1 - Discharge Care Plan Goals to Promote Your Health: * To prevent worsening of your condition and complications * To maintain your health at the optimal level Directions to Meet Your Goals: Take your medications as prescribed Follow your dietary instruction Follow activity as directed Keep your appointments as scheduled Take your immunizations and boosters as scheduled If your symptoms worsen call your PCP, if no PCP go to Urgent Care Center or Emergency Room For 15/11 questions related to your inpatient stay or results of tests pending at discharge, please contact Dr. Christiano Goode MD at Smoking is Dangerous to Your Health. Avoid second hand smoking (1) Schizophrenia Qualifiers: Schizophrenia type: unspecified Qualified Code(s): F20.9 - Schizophrenia, unspecified (1) Schizophrenia Qualifiers: Schizophrenia type: unspecified Qualified Code(s): F20.9 - Schizophrenia, unspecified
== END 2018-05-04 13:35 | disposition home or self-care (01) | DRG 885 ==
LOC: NEPE 05:19 → NEDA 18:51 → H260 19:38 → H270 04-30 07:51 → H260 05-02 11:16
PROVIDERS: ADMIT Psychiatry & Neurology Psychiatry; ATTEND Psychiatry & Neurology Psychiatry
CPT/HCPCS: 80048; 80053; 80061; 80307; 83036; 83735; 84443; 85025; 90791; 92610; 93005; 99285; G0195; J1200